=== PATIENT | male | born 1965 | race Caucasian/White ===

== ENCOUNTER 2022-12-29 18:36 | Emergency (ER) | payer OTHER ==
[2022-12-29] MEDS ORDERED: BUFFERED LIDOCAINE 10 ML SYRINGE SUBQ STA (18:42)
[2022-12-29 18:48] VITALS: BP 133/82
--- NOTE | 2022-12-29 18:55 | ED Physician Documentation ---
PD HPI LOWER EXT INJURY - Stated complaint Stated Complaint: L HAND LAC - Chief complaint Chief Complaint: Ext Problem - History obtained from History obtained from: Patient (He crushed his nondominant left fourth and fifth fingers in a folding ladder while working on his boat just prior to arrival. Tetanus is up-to-date.) PD PAST MEDICAL HISTORY - Present Medications Home Medications: Ambulatory Orders Medication Instructions Recorded Confirmed HYDROcod/ACETAM 5/325 [[place] 5/325] 1 - 2 tab PO Q6H PRN #15 tablet 12/29/22 cephALEXin [Keflex] 500 mg PO Q6H #20 cap 12/29/22 - Allergies Allergies/Adverse Reactions: Allergies Allergy/AdvReac Type Severity Reaction Status Date / Time No Known Drug Allergies Allergy Verified 12/29/22 18:47 PD ED PE NORMAL - Vitals Vital signs reviewed: Yes - General General: Alert and oriented X 3, No acute distress - Extremities Extremities: Other (He has 100% subungual hematoma of the fifth digit on the right and about 50% of the fourth digit. Both are very tender at the tips without neurovascular compromise. There are multiple shallow lacerations about the distal phalanges of those digits.) - Neuro Neuro: Alert and oriented X 3, Normal speech - Psych Psych: Normal mood, Normal affect Results - Vitals Vitals: Vital Signs - 24 hr 12/29/22 18:45 Temperature 361 C H Heart Rate 69 Respiratory 18 Rate Blood Pressure 133/82 H O2 Saturation 97 Oxygen O2 Source Room air - Rads (name of study) L hand XR- Comminuted distal tuft fractures of the fourth and fifth digits Relevant Findings:: Final report received, EMP independent interpretation of test Procedures - General procedure General procedure: Both fingers were blocked with buffered lidocaine and standard fashion with excellent anesthesia. Then irrigated and the fourth and fifth nails were trephinated using electrocautery. There were some shallow lacerations that were closed with Dermabond and he was placed in a bulky dressings with Metal foam finger splint of the fourth and fifth digits. PD Medical Decision Making - ED course ED course: 57-year-old gentleman with open finger fractures of the distal fourth and fifth digits and crush injuries there with some shallow lacerations that were irrigated and closed. Those 2 nails were trephinated for subungual hematomas. He was started on Keflex and given 4 Vicodin to go. Discussed need for orthopedic follow-up. Departure - Departure Disposition: 01 Home, Self Care Clinical Impression: Open fracture of finger of right hand Qualifiers: Encounter type: initial encounter Finger: little finger Phalanx: distal Fracture alignment: nondisplaced Qualified Code(s): S62.666B - Nondisplaced fracture of distal phalanx of right little finger, initial encounter for open fracture Open fracture of phalanx of ring finger Qualifiers: Encounter type: initial encounter Phalanx: distal Fracture alignment: displaced Laterality: right Qualified Code(s): S62.634B - Displaced fracture of distal phalanx of right ring finger, initial encounter for open fracture Condition: Good Record reviewed to determine appropriate education?: Yes Instructions: ED Fx Finger Open Follow-Up: Orthopedic Care [Provider Group] Prescriptions: cephALEXin [Keflex] 500 mg PO Q6H #20 cap HYDROcod/ACETAM 5/325 [[place] 5/325] 1 - 2 tab PO Q6H PRN #15 tablet PRN Reason: Pain Comments: I sent your prescriptions electronically to [facility] in [place]. Call the orthopedics office on Sunday for an appointment. You can remove the current dressings on Sunday evening, and wash gingerly with soap and water and pat dry. Then apply a loose gauze wrap with a antibiotic ointment such as bacitracin under it and then the splints. Elevate is much as possible. Return if pain is uncontrolled or for new or worrisome symptoms. I am prescribing a short course of narcotic pain medication for you. These are potentially dangerous and addictive medications that should be used carefully. These medications may constipate you. Take an pypi-fqe-otexwds stool softener (docusate) twice daily with plenty of water while taking these medications. If you go 24 hours without a bowel movement, take [id number] miralax, per package instructions. Do not drink or drive while taking these medications. If you received narcotic or sedating medications while in the emergency department, do not drive for 24 hours. Store this medication in a safe, secure place and out of reach of children. It is a violation of federal law to give or sell this medication to another person or to use in a manner other than prescribed. The ED will not refill narcotic prescriptions, including prescriptions lost or stolen. To dispose of unwanted medications: 1. [facility] at [address] in [place] has a medication drop box. They accept prescription medications (in pill form) Sunday through Sunday 9:00 a.m. to 5:00 p.m. 2. The [facility] accepts prescription medications (in pill form only) for disposal year round. Call for more information. 3. Contact the [facility] for the next [facility] sponsored prescription drug collection event. , [phone], or [phone]; Note that many narcotic pain relievers also contain Tylenol/acetaminophen. Please ensure that your total dose of acetaminophen from all sources does not exceed 3 g (3000 mg) per day.
--- OUTSIDE RECORDS SUMMARY | 2022-12-29 19:14 | EXTERNAL MEDICAL SUMMARY RPT | Continuity of Care Document ---
Author Name Unknown Address [address] [place] [address] Phone Organization [facility] Address [address] [place] [address] Phone Care Team Providers Care Sociology Teacher Name Role Phone Cyn, Benny Unavailable Unavailable Allergies and Intolerances date description facility type (no date) Iodinated Contrast Media [facility] (unknown) Medications date description facility 2022-10-05 00:00 Lorazepam [facility] Problems date description facility 2022-10-15 15:51 Unspecified injury o f left shoulder and upper arm, initial [facility] 2022-10-15 19:01 Unspecified injury o f left shoulder and upper arm, initial [facility] 2022-10-15 19:20 Unspecified injury o f left shoulder and upper arm, initial [facility] 2022-10-16 00:00 Tear of tendon of rotator cuff [facility] 2022-12-14 00:00 Patient left before evaluation by physician [facility] Procedures date description facility 2022-10-15 00:00 MR shoulder LT wo con [facility] 2022-12-14 00:00 Computed tomography of head or brain without contrast [facility] Results/Labs test date author facility value unit interpretation Result panel 1 (unknown) (no date) (unknown) [facility] (no value) (units unknown) (unknown) Result panel 2 (unknown) (no date) (unknown) [facility] (no value) (units unknown) (unknown) Result panel 3 (unknown) (no date) (unknown) [facility] (no value) (units unknown) (unknown) Result panel 4 (unknown) (no date) (unknown) [facility] (no value) (units unknown) (unknown) Result panel 5 (unknown) (no date) (unknown) [facility] (no value) (units unknown) (unknown) Result panel 6 (unknown) (no date) (unknown) [facility] (no value) (units unknown) (unknown) Result panel 7 (unknown) (no date) (unknown) [facility] (no value) (units unknown) (unknown) Result panel 8 (unknown) (no date) (unknown) [facility] (no value) (units unknown) (unknown) Result panel 9 (unknown) (no date) (unknown) [facility] (no value) (units unknown) (unknown) Result panel 10 (unknown) (no date) (unknown) [facility] (no value) (units unknown) (unknown) Result panel 11 (unknown) (no date) (unknown) [facility] (no value) (units unknown) (unknown) Result panel 12 (unknown) (no date) (unknown) [facility] (no value) (units unknown) (unknown) Result panel 13 (unknown) (no date) (unknown) [facility] (no value) (units unknown) (unknown) Result panel 14 (unknown) (no date) (unknown) [facility] (no value) (units unknown) (unknown) Result panel 15 (unknown) (no date) (unknown) [facility] (no value) (units unknown) (unknown) Result panel 16 (unknown) (no date) (unknown) [facility] (no value) (units unknown) (unknown) Result panel 17 (unknown) (no date) (unknown) [facility] (no value) (units unknown) (unknown) Result panel 18 (unknown) (no date) (unknown) [facility] (no value) (units unknown) (unknown) Result panel 19 (unknown) (no date) (unknown) [facility] (no value) (units unknown) (unknown) Result panel 20 (unknown) (no date) (unknown) [facility] (no value) (units unknown) (unknown) Result panel 21 (unknown) (no date) (unknown) [facility] (no value) (units unknown) (unknown) Result panel 22 (unknown) (no date) (unknown) [facility] (no value) (units unknown) (unknown) Result panel 23 (unknown) (no date) (unknown) [facility] (no value) (units unknown) (unknown) Result panel 24 (unknown) (no date) (unknown) [facility] (no value) (units unknown) (unknown) Result panel 25 (unknown) (no date) (unknown) [facility] (no value) (units unknown) (unknown) Result panel 26 (unknown) (no date) (unknown) [facility] (no value) (units unknown) (unknown) Result panel 27 (unknown) (no date) (unknown) [facility] (no value) (units unknown) (unknown) Result panel 28 (unknown) (no date) (unknown) [facility] (no value) (units unknown) (unknown) Result panel 29 (unknown) (no date) (unknown) [facility] (no value) (units unknown) (unknown) Result panel 30 (unknown) (no date) (unknown) [facility] (no value) (units unknown) (unknown) Result panel 31 (unknown) (no date) (unknown) [facility] (no value) (units unknown) (unknown) Result panel 32 (unknown) (no date) (unknown) [facility] (no value) (units unknown) (unknown) Result panel 33 (unknown) (no date) (unknown) [facility] (no value) (units unknown) (unknown) Result panel 34 (unknown) (no date) (unknown) [facility] (no value) (units unknown) (unknown) Result panel 35 (unknown) (no date) (unknown) [facility] (no value) (units unknown) (unknown) Result panel 36 (unknown) (no date) (unknown) [facility] (no value) (units unknown) (unknown) Result panel 37 (unknown) (no date) (unknown) [facility] (no value) (units unknown) (unknown) Result panel 38 (unknown) (no date) (unknown) [facility] (no value) (units unknown) (unknown) Result panel 39 (unknown) (no date) (unknown) [facility] (no value) (units unknown) (unknown) Result panel 40 (unknown) (no date) (unknown) [facility] (no value) (units unknown) (unknown) Result panel 41 (unknown) (no date) (unknown) [facility] (no value) (units unknown) (unknown) Result panel 42 (unknown) (no date) (unknown) [facility] (no value) (units unknown) (unknown) Result panel 43 (unknown) (no date) (unknown) [facility] (no value) (units unknown) (unknown) Result panel 44 (unknown) (no date) (unknown) [facility] (no value) (units unknown) (unknown) Result panel 45 (unknown) (no date) (unknown) [facility] (no value) (units unknown) (unknown) Result panel 46 (unknown) (no date) (unknown) [facility] (no value) (units unknown) (unknown) Result panel 47 (unknown) (no date) (unknown) [facility] (no value) (units unknown) (unknown) Result panel 48 (unknown) (no date) (unknown) [facility] (no value) (units unknown) (unknown) Result panel 49 (unknown) (no date) (unknown) [facility] (no value) (units unknown) (unknown) Result panel 50 (unknown) (no date) (unknown) [facility] (no value) (units unknown) (unknown) Result panel 51 (unknown) (no date) (unknown) [facility] (no value) (units unknown) (unknown) Result panel 52 (unknown) (no date) (unknown) [facility] (no value) (units unknown) (unknown) Result panel 53 (unknown) (no date) (unknown) [facility] (no value) (units unknown) (unknown) Result panel 54 (unknown) (no date) (unknown) [facility] (no value) (units unknown) (unknown) Result panel 55 (unknown) (no date) (unknown) [facility] (no value) (units unknown) (unknown) Result panel 56 (unknown) (no date) (unknown) [facility] (no value) (units unknown) (unknown) Result panel 57 (unknown) (no date) (unknown) [facility] (no value) (units unknown) (unknown) Result panel 58 (unknown) (no date) (unknown) [facility] (no value) (units unknown) (unknown) Result panel 59 (unknown) (no date) (unknown) [facility] (no value) (units unknown) (unknown) Result panel 60 (unknown) (no date) (unknown) [facility] (no value) (units unknown) (unknown) Result panel 61 (unknown) (no date) (unknown) [facility] (no value) (units unknown) (unknown) Result panel 62 (unknown) (no date) (unknown) [facility] (no value) (units unknown) (unknown) Result panel 63 (unknown) (no date) (unknown) [facility] (no value) (units unknown) (unknown) Result panel 64 (unknown) (no date) (unknown) [facility] (no value) (units unknown) (unknown) Result panel 65 (unknown) (no date) (unknown) [facility] (no value) (units unknown) (unknown) Result panel 66 (unknown) (no date) (unknown) [facility] (no value) (units unknown) (unknown) Result panel 67 (unknown) (no date) (unknown) [facility] (no value) (units unknown) (unknown) Result panel 68 (unknown) (no date) (unknown) [facility] (no value) (units unknown) (unknown) Result panel 69 (unknown) (no date) (unknown) [facility] (no value) (units unknown) (unknown) Result panel 70 (unknown) (no date) (unknown) [facility] (no value) (units unknown) (unknown) Result panel 71 (unknown) (no date) (unknown) [facility] (no value) (units unknown) (unknown) Result panel 72 (unknown) (no date) (unknown) [facility] (no value) (units unknown) (unknown) Result panel 73 (unknown) (no date) (unknown) [facility] (no value) (units unknown) (unknown) Result panel 74 (unknown) (no date) (unknown) [facility] (no value) (units unknown) (unknown) Result panel 75 (unknown) (no date) (unknown) [facility] (no value) (units unknown) (unknown) Result panel 76 (unknown) (no date) (unknown) [facility] (no value) (units unknown) (unknown) Result panel 77 (unknown) (no date) (unknown) [facility] (no value) (units unknown) (unknown) Result panel 78 (unknown) (no date) (unknown) [facility] (no value) (units unknown) (unknown) Result panel 79 (unknown) (no date) (unknown) [facility] (no value) (units unknown) (unknown) Result panel 80 (unknown) (no date) (unknown) [facility] (no value) (units unknown) (unknown) Result panel 81 (unknown) (no date) (unknown) [facility] (no value) (units unknown) (unknown) Result panel 82 (unknown) (no date) (unknown) [facility] (no value) (units unknown) (unknown) Result panel 83 (unknown) (no date) (unknown) (unknown) (no value) (units unknown) (unknown) (unknown) (no date) (unknown) (unknown) 10/15/22 (units unknown) (unknown) (unknown) (no date) (unknown) (unknown) 1. High-grade partia l intrasubstance tearing of the supraspinatus tendon at the (units unknown) (unknown) (unknown) (no date) (unknown) (unknown) [address] [place] [address] (units unknown) (unknown) (unknown) (no date) (unknown) (unknown) 2. Moderate to sever e subscapularis tendinosis with superimposed moderate grade (units unknown) (unknown) (unknown) (no date) (unknown) (unknown) 3. Mild proximal biceps long head tendinosis. (units unknown) (unknown) (unknown) (no date) (unknown) (unknown) 4. Small nondisplace d tear of the posteroinferior labrum. (units unknown) (unknown) (unknown) (no date) (unknown) (unknown) 5. Increased signal intensity in the inferior glenohumeral ligament near the (units unknown) (unknown) (unknown) (no date) (unknown) (unknown) 6. Moderate acromioclavicular joint osteoarthrosis. (units unknown) (unknown) (unknown) (no date) (unknown) (unknown) 7. Small subacromial/subdeltoi d bursal effusion or bursitis. Small glenohumeral (units unknown) (unknown) (unknown) (no date) (unknown) (unknown) Accession Number: [id number] (units unknown) (unknown) (unknown) (no date) (unknown) (unknown) Age/Sex: 57 / M Date of Service: (units unknown) (unknown) (unknown) (no date) (unknown) (unknown) [place] [address] (units unknown) (unknown) (unknown) (no date) (unknown) (unknown) Approved by: Marino Ryan M.D. on 10/16/2022 at 8:50 (units unknown) (unknown) (unknown) (no date) (unknown) (unknown) Bones and bursae: No acute trabecular bone injury or fracture. Chronic (units unknown) (unknown) (unknown) (no date) (unknown) (unknown) COMPARISON: None. (units unknown) (unknown) (unknown) (no date) (unknown) (unknown) Capsule and soft tissues: A small nondisplaced tear is seen at the (units unknown) (unknown) (unknown) (no date) (unknown) (unknown) : 1965 Acct:[id number] (units unknown) (unknown) (unknown) (no date) (unknown) (unknown) FINDINGS: (units unknown) (unknown) (unknown) (no date) (unknown) (unknown) IMPRESSION: (units unknown) (unknown) (unknown) (no date) (unknown) (unknown) INDICATIONS: Left shoulder injury (units unknown) (unknown) (unknown) (no date) (unknown) (unknown) Image quality: Excellent. (units unknown) (unknown) (unknown) (no date) (unknown) (unknown) [facility] (units unknown) (unknown) (unknown) (no date) (unknown) (unknown) Loc: MRI (units unknown) (unknown) (unknown) (no date) (unknown) (unknown) [id number] (units unknown) (unknown) (unknown) (no date) (unknown) (unknown) Magnetic Resonance Report (units unknown) (unknown) (unknown) (no date) (unknown) (unknown) Noncontrast oblique coronal T2 fast spin echo with fat saturation, oblique (units unknown) (unknown) (unknown) (no date) (unknown) (unknown) Ordering Provider: Benny Addison MD (units unknown) (unknown) (unknown) (no date) (unknown) (unknown) PROCEDURE: MR SHOULDER LT WO CON (units unknown) (unknown) (unknown) (no date) (unknown) (unknown) Patient: Jovon Hills MR#: (units unknown) (unknown) (unknown) (no date) (unknown) (unknown) Procedure: MR shoulder LT wo con (units unknown) (unknown) (unknown) (no date) (unknown) (unknown) Rotator cuff: High-grade partial intrasubstance and possibly articular sided (units unknown) (unknown) (unknown) (no date) (unknown) (unknown) Signed (units unknown) (unknown) (unknown) (no date) (unknown) (unknown) TECHNIQUE: (units unknown) (unknown) (unknown) (no date) (unknown) (unknown) There is (units unknown) (unknown) (unknown) (no date) (unknown) (unknown) anterior (units unknown) (unknown) (unknown) (no date) (unknown) (unknown) are intact. There is moderate to severe subscapularis tendinosis with moderate (units unknown) (unknown) (unknown) (no date) (unknown) (unknown) articular surface. Moderate supraspinatus tendinosis. (units unknown) (unknown) (unknown) (no date) (unknown) (unknown) attachment, which ma y be secondary to a prior capsular injury. No full (units unknown) (unknown) (unknown) (no date) (unknown) (unknown) bursal fluid and mil d bursal thickening. A small glenohumeral joint effusion is (units unknown) (unknown) (unknown) (no date) (unknown) (unknown) changes are seen at the posterosuperior humeral head. Moderate degenerative (units unknown) (unknown) (unknown) (no date) (unknown) (unknown) changes is (units unknown) (unknown) (unknown) (no date) (unknown) (unknown) dimension superimposed on moderate tendinosis. The infraspinatus and teres (units unknown) (unknown) (unknown) (no date) (unknown) (unknown) echo with fat saturation through the shoulder. (units unknown) (unknown) (unknown) (no date) (unknown) (unknown) effusion. (units unknown) (unknown) (unknown) (no date) (unknown) (unknown) fast spin (units unknown) (unknown) (unknown) (no date) (unknown) (unknown) footprint measuring 6 mm in anterior-posterior dimension that may communicate (units unknown) (unknown) (unknown) (no date) (unknown) (unknown) glenohumeral (units unknown) (unknown) (unknown) (no date) (unknown) (unknown) grade (units unknown) (unknown) (unknown) (no date) (unknown) (unknown) humeral (units unknown) (unknown) (unknown) (no date) (unknown) (unknown) increased (units unknown) (unknown) (unknown) (no date) (unknown) (unknown) intrasubstance tearing at the superior insertion. (units unknown) (unknown) (unknown) (no date) (unknown) (unknown) labrum. There is mil d tendinosis of the proximal biceps long head tendon. (units unknown) (unknown) (unknown) (no date) (unknown) (unknown) ligament tear is seen. (units unknown) (unknown) (unknown) (no date) (unknown) (unknown) ligament. (units unknown) (unknown) (unknown) (no date) (unknown) (unknown) minor tendons (units unknown) (unknown) (unknown) (no date) (unknown) (unknown) partial effacement o f the normal fat signal in the rotator interval. Mildly (units unknown) (unknown) (unknown) (no date) (unknown) (unknown) partial intrasubstance tearing at the superior insertion. There is no (units unknown) (unknown) (unknown) (no date) (unknown) (unknown) partial (units unknown) (unknown) (unknown) (no date) (unknown) (unknown) posterior (units unknown) (unknown) (unknown) (no date) (unknown) (unknown) posteroinferior (units unknown) (unknown) (unknown) (no date) (unknown) (unknown) present. (units unknown) (unknown) (unknown) (no date) (unknown) (unknown) rotator cuff muscle atrophy. (units unknown) (unknown) (unknown) (no date) (unknown) (unknown) sagittal T1 (units unknown) (unknown) (unknown) (no date) (unknown) (unknown) seen at the acromioclavicular joint. There is a small amount of (units unknown) (unknown) (unknown) (no date) (unknown) (unknown) signal is seen in th e region of the humeral attachment of the inferior (units unknown) (unknown) (unknown) (no date) (unknown) (unknown) significant (units unknown) (unknown) (unknown) (no date) (unknown) (unknown) spin echo and T2 fas t spin echo with fat saturation, axial T1 spin echo and T2 (units unknown) (unknown) (unknown) (no date) (unknown) (unknown) subacromial/subdelto i d (units unknown) (unknown) (unknown) (no date) (unknown) (unknown) tearing of (units unknown) (unknown) (unknown) (no date) (unknown) (unknown) the supraspinatus tendon at the anterior footprint measuring 6 mm in anterior (units unknown) (unknown) (unknown) (no date) (unknown) (unknown) thickness (units unknown) (unknown) (unknown) (no date) (unknown) (unknown) traction cystic (units unknown) (unknown) (unknown) (no date) (unknown) (unknown) with the (units unknown) (unknown) Result panel 84 (unknown) (no date) (unknown) (unknown) (no value) (units unknown) (unknown) (unknown) (no date) (unknown) (unknown) 12/14/22 (units unknown) (unknown) (unknown) (no date) (unknown) (unknown) [address] [place] [address] (units unknown) (unknown) (unknown) (no date) (unknown) (unknown) Accession Number: [id number] (units unknown) (unknown) (unknown) (no date) (unknown) (unknown) Age/Sex: 57 / M Date of Service: (units unknown) (unknown) (unknown) (no date) (unknown) (unknown) [place] [address] (units unknown) (unknown) (unknown) (no date) (unknown) (unknown) Approved by: Pelon Chapman M.D. on 12/14/2022 at 15:16 (units unknown) (unknown) (unknown) (no date) (unknown) (unknown) Brain: No midline shift. No intracranial masses or hemorrhage. Kennedy-white (units unknown) (unknown) (unknown) (no date) (unknown) (unknown) COMPARISON: [facility], MR, MR [facility], 12/30/2019, 15:23. [facility], (units unknown) (unknown) (unknown) (no date) (unknown) (unknown) CSF spaces: Basal cisterns are patent. No extra-axial fluid collections. (units unknown) (unknown) (unknown) (no date) (unknown) (unknown) CT Scan Report (units unknown) (unknown) (unknown) (no date) (unknown) (unknown) CT, CT (units unknown) (unknown) (unknown) (no date) (unknown) (unknown) : 1965 Acct:[id number] (units unknown) (unknown) (unknown) (no date) (unknown) (unknown) Dictated by: Pelon Chapman M.D. on 12/14/2022 at 15:14 (units unknown) (unknown) (unknown) (no date) (unknown) (unknown) FINDINGS: (units unknown) (unknown) (unknown) (no date) (unknown) (unknown) IMPRESSION: Normal noncontrast head CT for age, stable from prior. (units unknown) (unknown) (unknown) (no date) (unknown) (unknown) INDICATIONS: Intermittent Blurry vision (units unknown) (unknown) (unknown) (no date) (unknown) (unknown) Image quality: Excellent. (units unknown) (unknown) (unknown) (no date) (unknown) (unknown) [facility] (units unknown) (unknown) (unknown) (no date) (unknown) (unknown) Loc: ED (units unknown) (unknown) (unknown) (no date) (unknown) (unknown) [id number] (units unknown) (unknown) (unknown) (no date) (unknown) (unknown) Noncontrast 4.5 mm thick angled axial sections acquired from the foramen magnum (units unknown) (unknown) (unknown) (no date) (unknown) (unknown) Ordering Provider: Oneal Doe D.O. (units unknown) (unknown) (unknown) (no date) (unknown) (unknown) PROCEDURE: CT HEAD/BRAIN WO CON (units unknown) (unknown) (unknown) (no date) (unknown) (unknown) Patient: J[place] MR#: (units unknown) (unknown) (unknown) (no date) (unknown) (unknown) Procedure: CT head/brain wo con (units unknown) (unknown) (unknown) (no date) (unknown) (unknown) [facility], 12/29/2019, 23:26. (units unknown) (unknown) (unknown) (no date) (unknown) (unknown) Signed (units unknown) (unknown) (unknown) (no date) (unknown) (unknown) Sinuses: Visualized sinuses and mastoids are clear. (units unknown) (unknown) (unknown) (no date) (unknown) (unknown) Skull and face: Calvarium and visualized facial bones are intact, without (units unknown) (unknown) (unknown) (no date) (unknown) (unknown) TECHNIQUE: (units unknown) (unknown) (unknown) (no date) (unknown) (unknown) Ventricles (units unknown) (unknown) (unknown) (no date) (unknown) (unknown) are normal in size and shape. (units unknown) (unknown) (unknown) (no date) (unknown) (unknown) following (units unknown) (unknown) (unknown) (no date) (unknown) (unknown) interface is normal. (units unknown) (unknown) (unknown) (no date) (unknown) (unknown) lesions. (units unknown) (unknown) (unknown) (no date) (unknown) (unknown) matter (units unknown) (unknown) (unknown) (no date) (unknown) (unknown) patient (units unknown) (unknown) (unknown) (no date) (unknown) (unknown) size. (units unknown) (unknown) (unknown) (no date) (unknown) (unknown) suspicious (units unknown) (unknown) (unknown) (no date) (unknown) (unknown) to the (units unknown) (unknown) (unknown) (no date) (unknown) (unknown) vertex, with coronal and sagittal reformats. For radiation dose reduction, the (units unknown) (unknown) (unknown) (no date) (unknown) (unknown) was used: automated exposure control, adjustment of mA and/or kV according to (units unknown) (unknown) Result panel 85 (unknown) (no date) (unknown) (unknown) 1.1 % (unknown) (unknown) (no date) (unknown) (unknown) 100 /ul (unknown) (unknown) (no date) (unknown) (unknown) 13.2 % (unknown) (unknown) (no date) (unknown) (unknown) 15.4 g/dl (unknown) (unknown) (no date) (unknown) (unknown) 2.2 % (unknown) (unknown) (no date) (unknown) (unknown) 200 /ul (unknown) (unknown) (no date) (unknown) (unknown) 2400 /ul (unknown) (unknown) (no date) (unknown) (unknown) 279 x10 3/ul (unknown) (unknown) (no date) (unknown) (unknown) 28.7 % (unknown) (unknown) (no date) (unknown) (unknown) 30.5 pg (unknown) (unknown) (no date) (unknown) (unknown) 35.6 % (unknown) (unknown) (no date) (unknown) (unknown) 43.3 % (unknown) (unknown) (no date) (unknown) (unknown) 5.05 x10 6/ul (unknown) (unknown) (no date) (unknown) (unknown) 500 /ul (unknown) (unknown) (no date) (unknown) (unknown) 5100 /ul (unknown) (unknown) (no date) (unknown) (unknown) 6.5 % (unknown) (unknown) (no date) (unknown) (unknown) 61.5 % (unknown) (unknown) (no date) (unknown) (unknown) 8.2 x10 3/ul (unknown) (unknown) (no date) (unknown) (unknown) 85.7 fl (unknown) Result panel 86 (unknown) (no date) (unknown) (unknown) > 60 ml/min (unknown) (unknown) (no date) (unknown) (unknown) > 60 ml/min (unknown) (unknown) (no date) (unknown) (unknown) 0.4 mg/dl (unknown) (unknown) (no date) (unknown) (unknown) 0.88 mg/dl (unknown) (unknown) (no date) (unknown) (unknown) 1.6 (units unknown) (unknown) (unknown) (no date) (unknown) (unknown) 103 mmol/l (unknown) (unknown) (no date) (unknown) (unknown) 112 u/l (unknown) (unknown) (no date) (unknown) (unknown) 140 mmol/l (unknown) (unknown) (no date) (unknown) (unknown) 15 mg/dl (unknown) (unknown) (no date) (unknown) (unknown) 17.0 (units unknown) (unknown) (unknown) (no date) (unknown) (unknown) 28 mmol/l (unknown) (unknown) (no date) (unknown) (unknown) 3.0 g/dl (unknown) (unknown) (no date) (unknown) (unknown) 3.2 mmol/l (unknown) (unknown) (no date) (unknown) (unknown) 35 iu/l (unknown) (unknown) (no date) (unknown) (unknown) 39 iu/l (unknown) (unknown) (no date) (unknown) (unknown) 4.7 g/dl (unknown) (unknown) (no date) (unknown) (unknown) 62 u/l (unknown) (unknown) (no date) (unknown) (unknown) 7.7 g/dl (unknown) (unknown) (no date) (unknown) (unknown) 9.5 mg/dl (unknown) (unknown) (no date) (unknown) (unknown) 96 mg/dl (unknown) (unknown) (no date) (unknown) (unknown) 96 mg/dl (unknown) Social History date description facility 2022-12-14 00:00 Never smoked tobacco ([facility] Vital Signs date measurement value units 2022-12-14 00:00 BMI 27.3 kg/m2 2022-12-14 00:00 BP_diastolic 84 mmHg 2022-12-14 00:00 BP_systolic 156 mmHg 2022-12-14 00:00 heart_rate 75 /min 2022-12-14 00:00 height_metric 172.72 cm 2022-12-14 00:00 height_standard 68 in 2022-12-14 00:00 o2_saturation 97 % 2022-12-14 00:00 respiration_rate 18 /min 2022-12-14 00:00 temperature_metric 36.5 C 2022-12-14 00:00 temperature_standard 97.7 F 2022-12-14 00:00 weight_metric 81.64 kg 2022-12-14 00:00 weight_standard 179.99 lb
[2022-12-29] MEDS ORDERED: HYDROcod/ACET 5/325 Prepack 4 PO STA (19:16)
[2022-12-29] MEDS ORDERED: CEPHALEXIN 250 MG Prepack 8 CAP BOTTLE PO STA (19:16)
--- NOTE | 2022-12-29 19:24 | XRAY Report ---
PROCEDURE: Hand 3 View LT INDICATIONS: hand inj TECHNIQUE: 3 views of the hand(s) acquired. COMPARISON: None. FINDINGS: Bones: Comminuted distal tuft fractures of the fourth and fifth digits more prominent at the fourth digit are present. Mild displacement is present. Soft tissues: No suspicious soft tissue calcifications or masses. IMPRESSION: Fourth greater than fifth comminuted distal tuft fractures with mild displacement. Reviewed by: Suzie Acosta MD on 12/29/2022 7:23 PM PDT Approved by: Suzie Acosta MD on 12/29/2022 7:23 PM PDT Station ID: [id number]
== END 2022-12-29 19:41 | disposition home or self-care (01) ==
LOC: ED 18:36
DX: S62.666B Nondisplaced fracture of distal phalanx of right little finger, initial encounter for open fracture (principal); S62.634B Displaced fracture of distal phalanx of right ring finger, initial encounter for open fracture; W23.1XXA Caught, crushed, jammed, or pinched between stationary objects, initial encounter; Y92.814 Boat as the place of occurrence of the external cause
CPT/HCPCS: 11740; 12002; 99283